=== PATIENT | female | born 1975 | race African-American/Black ===

== ENCOUNTER 2024-01-08 18:22 | Emergency (ER) | payer OTHER, SELFPAY ==
[2024-01-08 18:26] VITALS: BP 137/89
[2024-01-08 18:56] LABS: % Basophils 0.6 % (0-2); % Eosinophils 1.3 % (0-6); % Immature Granulocytes 0.2 % (0-0.5); % Lymphocytes 32.5 % (20.5-51.1); % Monocytes 7.4 % (1.7-9.3); Absolute Basophils 0.1 10^3/uL (0-0.2); Absolute Eosinophils 0.1 10^3/uL (0-0.7); Absolute Lymphocytes 3.4 10^3/uL (1.2-3.4); Absolute Monocytes 0.8 10^3/uL (0.1-0.6); Hematocrit 38.6 % (37.0-47.0); Hemoglobin 12.7 g/dL (12.0-16.0); Mean Corp Hgb Conc. 32.9 g/dL (33.0-37.0); Mean Corpuscular Hgb 25.1 pg (27.0-31.0); Mean Corpuscular Volume 76.4 fL (81.0-99.0); Mean Platelet Volume 10.2 fL (7.4-10.4); Nucleated Red Blood Cells % 0 %; Platelet Count 303 10^3/uL (130-400); Red Blood Cell Count 5.05 10^6/uL (4.20-5.40); Red Cell Dist. Width 17.1 % (11.5-14.5); White Blood Cell Count 10.3 10^3/uL (4.8-10.8)
[2024-01-08 18:57] LABS: Urine Albumin Trace (Neg - Trace); Urine Bilirubin Negative (Negative); Urine Character Clear (Clear); Urine Color Yellow; Urine Glucose Negative (Negative); Urine Ketone 1+ (Negative); Urine Leukocyte Negative (Negative); Urine Nitrite Negative (Negative); Urine Occult Blood Negative (Negative); Urine Specific Gravity 1.025 (<1.030); Urine Urobilinogen 1+ (Neg - 1+)
[2024-01-08 19:10] LABS: HCG, Serum Qualitative Screen Negative
[2024-01-08 19:15] LABS: ALT (SGPT) 21 U/L (0-35); AST (SGOT) 27 U/L (14-36); Albumin 4.3 g/dl (3.5-5.0); Alkaline Phosphatase 83 U/L (38-126); Blood Urea Nitrogen 14 mg/dl (7-17); Carbon Dioxide 24 mmol/L (22-30); Chloride 105 mmol/L (98-107); Glucose 114 mg/dl (70-99); Lipase 282 U/L (23-300); Potassium 3.7 mmol/L (3.5-5.1); Sodium 136 mmol/L (135-145); Total Bilirubin 0.7 mg/dl (0.2-1.3); Total Protein 7.1 g/dl (6.3-8.2); eGFR > 60.00
[2024-01-08 19:24] LABS: Troponin I < 0.012 ng/ml
[2024-01-08 21:22] VITALS: BP 133/91
[2024-01-08 22:00] VITALS: BP 120/78
--- NOTE | 2024-01-08 22:34 | ED.GENMED ---
History of Present Illness
General
Chief Complaint: Abdominal Symptoms
Source: patient
Exam Limitations: none
Time Seen by Provider: 01/08/24 22:03
Nursing documentation reviewed up to this point in time: agreed with
Travel History
Have you had any contact with someone who has COVID-19?: No
Do you have any symptoms of coronavirus? Fever > 100 degrees, chills, cough, shortness of breath, sore throat, loss of taste or smell, muscle aches, or headache?: No
History of Present Illness
History of Present Illness:
The patient is a 48-year-old female who comes in with complaints of abdominal pain that started about a week ago and has now moved into her chest. Patient reports she initially had lower abdominal pain that moved into her upper abdomen and into her
chest. She describes it as a heaviness. She denies shortness of breath, nausea, vomiting and diarrhea. She reports that the symptoms have lingered for several hours at a time over the last week. Patient reports that they have been fairly
constant and do not seem to be associated with eating, exertion or deep breaths. She denies history of PE and DVT. She reports that she initially thought it was just gas pains
Past History
Past History
ED Past Medical History: GERD, HTN, Other (Fibromyalgia), Other (Fibroids) and Other (Anxiety/depression. IBS)
ED Past Surgical History: Gynecological (Partial hysterectomy with ovaries still in place) and Orthopedic
Social History
Tobacco: Non-smoker
Alcohol: None
Drug: None
Personal: Single
Living: with family
Employment: Employed (Pharmaceutical)
Family History
Family History: Other (Noncontributory)
Review of Systems
Review of Systems
Allergies reviewed?: Yes
All Other Systems: ROS reviewed and negative except as documented in HPI and ROS
Constitutional: Reports no symptoms
EENT: Reports no symptoms
Respiratory: Reports no symptoms
Cardiac: Reports chest pain
ABD/GI: Reports abdominal pain
: Reports no symptoms
Musculoskeletal: Reports no symptoms
Skin: Reports no symptoms
Neurological: Reports no symptoms
Endocrine: Reports no symptoms
Hematologic/Lymphatic: Reports no symptoms
Psychiatric: Reports no symptoms
Phy Exam
Physical Exam
Physical Exam:
Physical Exam
General: no apparent distress, not acutely ill, well appearing, conversational
Neck: supple. no meningeal signs. normal psoterior pharynx
Heart: s1/s2 regular rate and rhythm, no murmur. equal radial pulses.
Lungs: no acute respiratory distress. clear bilaterally
Abdomen: normal bowel sounds. no CVAT. No pulsatile mass. Mild epigastric tenderness without rebound or guarding. Abdomen is completely soft throughout and nondistended
Neuro: alert and oriented. no focal neurological deficits
Skin: no rash
Psychiatric: well kept. interactive and cooperative
Extremities: no edema. no calf tenderness. negative homans. good distal pulses
Course
Orders/Labs/Results
Orders:
Orders
01/08/24 18:24
ECG [Electrocardiogram (*1)] Urgent
Reason for Study: Chest Pain
EKG- Treatment ONCE
01/08/24 18:30
Test Result ONCE
01/08/24 18:41
Complete Blood Count/With Diff Urgent
Comprehensive Metabolic Panel Urgent
HCG, Serum Qualitative Screen Urgent
Lipase Urgent
Troponin I Urgent
Urinalysis Reflex To Culture Urgent
Date Specimen was Collected: 01/08/24
Time Specimen was Collected: 18:30
01/08/24 22:41
Mag Hydrox/Al Hydrox/Simeth [Maalox] 30 ml Phenobarb/Hyoscy/Atropine/Scop [] 10 ml Viscous Lidocaine 2% [Xylocaine Viscous Cup] 10 ml PO NOW
01/08/24 22:48
Mag Hydrox/Al Hydrox/Simeth [Maalox] 30 ml .ROUTE .STK-MED ONE
Phenobarb/Hyoscy/Atropine/Scop [] 10 ml .ROUTE .STK-MED ONE
Viscous Lidocaine 2% [Xylocaine Viscous Cup] 15 ml .ROUTE .STK-MED ONE
Abnormal Lab Results
01/08/24
18:41
MCV 76.4 L fL
(81.0-99.0)
MCH 25.1 L pg
(27.0-31.0)
MCHC 32.9 L g/dL
(33.0-37.0)
RDW 17.1 H %
(11.5-14.5)
Absolute Monos (auto) 0.8 H 10^3/uL
(0.1-0.6)
Glucose 114 H mg/dl
(70-99)
Urine Ketones 1+ A
(Negative)
01/08/24 18:41
01/08/24 18:41
Vital Signs
Initial and Last Documented VS:
Initial Vital Signs
Temp Pulse Resp BP Pulse Ox
98.4 F 84 20 137/89 97
01/08/24 18:26 01/08/24 18:26 01/08/24 18:26 01/08/24 18:26 01/08/24 18:26
Last Documented Vital Signs
Temp Pulse Resp BP Pulse Ox
98.4 F 62 15 128/90 98
01/08/24 18:26 01/08/24 23:30 01/08/24 23:30 01/08/24 23:00 01/08/24 23:30
MDM/Problems Addressed
Differential Diagnosis Includes:
Gastritis, GERD, hiatal hernia, acute pancreatitis, acute cholecystitis, small bowel obstruction right, acute coronary syndrome
MDM/Problems Addressed:
Patient presents with acute abdominal pain that has now moved into her epigastric area and chest
Chronic conditions affecting care:
Given patient has a history of hypertension, she is at increased risk of acute coronary syndrome and aortic aneurysm
Chronic conditions affecting care: HTN
Acute Exacerbation and/or Progression of Chronic Illness:
Patient was acutely hypertensive, however, on rechecking her blood pressure, it is now substantially improved.
Acute Exacerbation and/or Progression of Chronic Illness: HTN
*Pulse Oximetry
Patient hypoxic: no
*Research Group Director Interpretation
Rate: normal
Interpretation: normal
Rhythm: sinus
*Critical Care Note
Total Time (30-74mins, 75-104mins- exclusive of procedures): Not Applicable
Data Reviewed
Review of Other/Old Records Reveals: Testing (Stress test reviewed from 2018 which showed no cardiac arrhythmias or ischemia)
Source: patient
Patient Management
Social determinants of health affecting care: Living situation
Update Note
Update Note:
11:30 PM patient reports she feels better with the GI cocktail. She still has no right upper quadrant pain to suggest acute cholecystitis. She has no mid abdominal or lower abdominal pain at this time to suggest acute diverticulitis, bowel
obstruction or acute appendicitis. Symptoms may be consistent with gastritis. Her troponin is negative despite several days of chest and abdominal pain therefore it is highly unlikely she is acute coronary syndrome. She has no pleuritic chest
pain or shortness of breath to suggest PE.
ED Attending Note
-
Portions of this chart may have been created with voice recognition software.� Occasional wrong word or��sound alike� substitutions may have occurred due to the inherent limitations of voice recognition software.
Discharge Plan
Departure
Patient Disposition: Home (Routine Discharge)
Date of Disposition: 01/08/24
Time of Disposition: 23:33
Patient with high blood pressure during this ER visit?: Yes
Condition: Good
Covid-19: Not Applicable
Discharge Problem:
Acute upper abdominal pain
Instructions: [place] Diet, Abdominal Pain, Adult ED
Prescriptions:
New
sucralfate [Carafate] 100 mg/mL suspension
10 ml PO ACHS Qty: 420 0RF
No Action
candesartan-hydrochlorothiazid 16-12.5 mg tablet
1 tab PO DAILY
cetirizine [Zyrtec] 10 mg Tablet
10 mg PO ONCE
naproxen sodium [Aleve] 220 mg Tablet
440 mg PO ONCE
cephalexin 500 mg capsule
500 mg PO Q6H 7 Days Qty: 28 0RF
Referrals:
Kenia Bean DO [Family Provider] -
Activity Restrictions/Additional Instructions:
Return for any shortness of breath. Return for fever. Return for persistent vomiting. Please call and follow-up with your county surveyor and/or primary care doctor within 1 week
Interventions
Interventions:
*Risk Screen - Suicide Last Done: 01/08/24 18:26
*General Assessment Last Done: 01/08/24 18:26
*Neglect/Abuse Screening Last Done: 01/08/24 23:41
ED- Fall Risk Assessment Last Done: 01/08/24 23:41
*ED COVID-19 Vaccine History Last Done: 01/08/24 23:41
*Nursing Disposition Last Done: 01/08/24 23:41
EE-Dhnwbo-Mjeduqxres Assessment Last Done: 01/08/24 21:28
Discharge Date and Time
Discharge Date/Time: 01/08/24 23:41
[2024-01-08] MEDS: MAALOX 50 PO (22:50)
[2024-01-08 23:00] VITALS: BP 128/90
== END 2024-01-08 23:41 | disposition home or self-care (01) ==
LOC: EMR 18:22
PROVIDERS: Emergency Medicine; EMERGENCY PHYSICIAN Emergency Medicine; FAMILY PHYSICIAN Family Medicine
DX: R10.10 Upper abdominal pain, unspecified (principal); R07.9 Chest pain, unspecified; I10 Essential (primary) hypertension
CPT/HCPCS: 99284; 80053; 81003; 83690; 84484; 84703; 85025; 93005

== ENCOUNTER → 2024-02-25 15:57 | Outpatient (REF) | payer OTHER, SELFPAY | LOC: MRI 3T 15:57 | PROVIDERS: ATTENDING PHYSICIAN Surgery; FAMILY PHYSICIAN Family Medicine | DX: R92.8 Other abnormal and inconclusive findings on diagnostic imaging of breast (principal) | CPT/HCPCS: 77049; A9585 ==

== ENCOUNTER → 2024-03-03 13:56 | Outpatient (REF) | payer OTHER, SELFPAY | LOC: WDC 13:56 | PROVIDERS: ATTENDING PHYSICIAN Surgery; FAMILY PHYSICIAN Family Medicine | DX: R92.8 Other abnormal and inconclusive findings on diagnostic imaging of breast (principal) | CPT/HCPCS: 76642 ==

== ENCOUNTER → 2024-03-27 13:02 | Outpatient (REF) | payer OTHER, SELFPAY | LOC: RCS 13:02 | PROVIDERS: ATTENDING PHYSICIAN Family Medicine | DX: R94.31 Abnormal electrocardiogram [ECG] [EKG] (principal); Z82.49 Family history of ischemic heart disease and other diseases of the circulatory system | CPT/HCPCS: 93017 ==

== ENCOUNTER 2024-04-25 20:39 | Emergency (ER) | payer OTHER, SELFPAY ==
[2024-04-25 20:46] VITALS: BP 168/96
[2024-04-25 22:03] VITALS: BMI 27.4
--- NOTE | 2024-04-25 22:16 | ED.GENMED ---
History of Present Illness
General
Chief Complaint: Breast Problem
Source: patient
Exam Limitations: none
Time Seen by Provider: 04/25/24 21:55
History of Present Illness
History of Present Illness:
This is a 49 year old female that comes in c/o feeling itchy. States that the lymph nodes are swollen in her arm pits. States that this has been painful and that this started a couple of days ago. Yesterday she spoke with the PCP and Dr. Yates
yesterday. States that she was given Tramadol for pain and that when her PCP returns from vacation they were going to talk as they felt this may be due to her RA. States that she took on Tramadol last night and on this morning at 7am. States that in
the past couple of hours she has become itchy and feels like her face is burning. States that she is afraid to take anything for pain. States that they feel it may be related to her RA or her Fibromyalgia. Denies any fever, chills, chest pain, SOB,
abd pain, nausea, vomiting, diarrhea, headache, dizziness, urinary burning.
Past History
Past History
ED Past Medical History: Asthma (allergie related. ), Fibromyalgia, GERD, HTN, Psychiatric (Anxiety/depression.), Other (Fibroids, Brain Lesion, RA, Ulcers, ) and Other ( IBS)
ED Past Surgical History: Gynecological (Partial hysterectomy with ovaries still in place) and Orthopedic (Right knee surgery, )
Social History
Tobacco: Non-smoker
Alcohol: Occasional
Drug: None
Personal:
Living: with family
Employment: Employed (Pharmaceutical)
Family History
Family History: Other (Noncontributory)
Review of Systems
Review of Systems
All Other Systems: ROS reviewed and negative except as documented in HPI and ROS
Constitutional: Reports no symptoms; Denies fever or chills
EENT: Reports no symptoms
Respiratory: Reports no symptoms; Denies cough or trouble breathing
Cardiac: Reports no symptoms; Denies chest pain
ABD/GI: Reports no symptoms; Denies abdominal pain, nausea, vomiting or diarrhea
: Reports no symptoms; Denies dysuria, frequency or urgency
Musculoskeletal: Reports no symptoms
Skin: Reports other (Swelling of arm pits)
Neurological: Reports no symptoms; Denies dizzy or headache
Psychiatric: Reports no symptoms
Phy Exam
General Physical Exam
General Presentation: no apparent distress
General age: appears stated age
General Skin: warm and dry
General Habitus: normal
General Mental: alert
General Hydration: appears well hydrated
ENT Exam
ENT Exam: TM's normal, pharynx normal and neck supple
Eye Exam
Eye Exam: EOMI
Cardiovascular Exam
Cardiovascular Exam: regular rate/rhythm, no edema, no murmur and normal peripheral pulses
Pulmonary Exam
Pulmonary Exam: lungs clear, no respiratory distress, no rales, chest non tender, no crackles, no rhonchi, no wheezing and no cough
Gastrointestinal Exam
Gastrointestinal Exam: normal bowel sounds, non tender, soft, no organomegaly, no pulsatile mass and non distended
Musculoskeletal Exam
Musculoskeletal Exam: full ROM and other (Under arm swelling and tenderness, negative for any redness)
Skin Exam
Skin Exam: normal color, warm/dry, no rash and no petechia
Psychiatric Exam
Psychiatric Exam: normal mood/affect
Course
Orders/Labs/Results
Orders:
Orders
04/25/24 22:07
Diphenhydramine [Benadryl] 25 mg IV NOW STA
Ketorolac [Toradol] 30 mg IV NOW STA
04/25/24 22:22
Test Result ONCE
04/25/24 22:30
Complete Blood Count/With Diff Urgent
Comprehensive Metabolic Panel Urgent
HCG, Serum Qualitative Screen Urgent
Abnormal Lab Results
04/25/24
22:30
MCV 75.3 L fL
(81.0-99.0)
MCH 25.2 L pg
(27.0-31.0)
RDW 14.9 H %
(11.5-14.5)
Absolute Monos (auto) 0.7 H 10^3/uL
(0.1-0.6)
Carbon Dioxide 21 L mmol/L
(22-30)
Glucose 106 H mg/dl
(70-99)
04/25/24 22:30
04/25/24 22:30
Vital Signs
Initial and Last Documented VS:
Initial Vital Signs
Temp Pulse Resp BP Pulse Ox
99.3 F 78 18 168/96 100
04/25/24 20:46 04/25/24 20:46 04/25/24 20:46 04/25/24 20:46 04/25/24 20:46
Last Documented Vital Signs
Temp Pulse Resp BP Pulse Ox
99.3 F 63 20 142/93 99
04/25/24 20:46 04/25/24 22:38 04/25/24 22:38 04/25/24 22:38 04/25/24 22:38
MDM/Problems Addressed
Differential Diagnosis Includes:
RA, lymph node swelling or arm pits
MDM/Problems Addressed:
This is a 49 year old female that comes in with c/o swelling of her under arms for the past couple of days. States that she was given Tramadol for pain and she started feeling like she was itchy. Patient has not taken any medication since 7am today.
Will check labs, medicate for pain and given Benadryl.
back into see patient. States that she is still a little itchy but her pain is better. Explained that her blood work shows some anemia, other arroyo is normal. Patient can use the Benadryl 50mg every 6 hours for the itching. Will stop the Tramadol.
Will give patient a prescription for the Toradol for pain. Follow up with the family doctor for recheck and further evaluation. Return with any concerns.
Chronic conditions affecting care:
RA, Fibromyalgia
Acute Exacerbation and/or Progression of Chronic Illness:
NA
*Pulse Oximetry
Patient hypoxic: no
*EKG
Interpreted by ED Provider?: NA
Rate: EKG- N/A
*Capital Project Engineer Interpretation
Rate: Capital Project Engineer- N/A
*Critical Care Note
Total Time (30-74mins, 75-104mins- exclusive of procedures): Not Applicable
ED Attending Note
-
Portions of this chart may have been created with voice recognition software.� Occasional wrong word or��sound alike� substitutions may have occurred due to the inherent limitations of voice recognition software.
Discharge Plan
Departure
Patient Disposition: Home (Routine Discharge)
Date of Disposition: 04/26/24
Time of Disposition: 00:13
Patient with high blood pressure during this ER visit?: Yes
Condition: Good
Covid-19: Not Applicable
Discharge Problem:
Allergic reaction caused by a drug
Instructions: Drug allergy, BLOOD PRESSURE
Prescriptions:
New
ketorolac 10 mg tablet
10 mg PO Q8H PRN (Reason: Pain) Qty: 15 0RF
Rx Instructions:
maximum total duration of 5 days from all oral, intranasal, or parenteral formulations
No Action
fluoxetine [Prozac] 10 mg Tablet
30 mg PO DAILY
amlodipine 5 mg Tablet
5 mg PO DAILY
alprazolam 0.5 mg Tablet
0.5 mg PO DAILY PRN (Reason: anxiety )
hydrochlorothiazide 12.5 mg Tablet
12.5 mg PO DAILY
Nurtec ODT 75 mg Tablet,Disintegrating
75 mg PO Q48H
Referrals:
Kenia Bean, DO [Family Provider] - Follow up in 2-3 days
Activity Restrictions/Additional Instructions:
As discussed,your blood work shows that you are a little anemic. This is most likely an allergic reaction to the Tramadol. Please do not take any more of this. You have had a prescription for Toradol sent to your pharmacy to help with pain. Follow
up with the family doctor for recheck. IF YOU HAVE ANY OTHER CONCERNS PLEASE RETURN TO THE EMERGENCY ROOM.
Interventions
Interventions:
*Risk Screen - Suicide Last Done: 04/25/24 20:46
*General Assessment Last Done: 04/25/24 20:46
*Neglect/Abuse Screening Last Done: 04/25/24 20:46
ED-Skin Assessment Last Done: 04/25/24 22:03
ED- Pulmonary Assessment Last Done: 04/25/24 22:03
ED-Musculoskeletal Assessment Last Done: 04/25/24 22:03
ED-EENT Assessment Last Done: 04/25/24 22:03
Discharge Date and Time
Print Language: HAITIAN
[2024-04-25] MEDS: BENADRYL 25 MG IV (22:19)
[2024-04-25] MEDS: TORADOL 30 MG IV (22:19)
[2024-04-25 22:38] VITALS: BP 142/93
[2024-04-25 22:45] LABS: % Basophils 0.3 % (0-2); % Eosinophils 0.9 % (0-6); % Immature Granulocytes 0.2 % (0-0.5); % Lymphocytes 33.1 % (20.5-51.1); % Monocytes 7.4 % (1.7-9.3); % Neutrophils 58.1 % (42.2-75.2); Absolute Eosinophils 0.1 10^3/uL (0-0.7); Absolute Lymphocytes 3.1 10^3/uL (1.2-3.4); Absolute Monocytes 0.7 10^3/uL (0.1-0.6); Absolute Neutrophils 5.5 10^3/uL (1.4-6.5); Hematocrit 37.4 % (37.0-47.0); Hemoglobin 12.5 g/dL (12.0-16.0); Mean Corp Hgb Conc. 33.4 g/dL (33.0-37.0); Mean Corpuscular Hgb 25.2 pg (27.0-31.0); Mean Corpuscular Volume 75.3 fL (81.0-99.0); Mean Platelet Volume 10.1 fL (7.4-10.4); Nucleated Red Blood Cells % 0 %; Platelet Count 242 10^3/uL (130-400); Red Blood Cell Count 4.97 10^6/uL (4.20-5.40); Red Cell Dist. Width 14.9 % (11.5-14.5); White Blood Cell Count 9.5 10^3/uL (4.8-10.8)
[2024-04-25 22:58] LABS: HCG, Serum Qualitative Screen Negative
[2024-04-25 23:03] LABS: ALT (SGPT) 16 U/L (0-35); AST (SGOT) 24 U/L (14-36); Albumin 4.2 g/dl (3.5-5.0); Alkaline Phosphatase 89 U/L (38-126); Blood Urea Nitrogen 13 mg/dl (7-17); Calcium 9.6 mg/dl (8.4-10.2); Carbon Dioxide 21 mmol/L (22-30); Chloride 104 mmol/L (98-107); Estimated Creatinine Clearance 87 ml/min; Glucose 106 mg/dl (70-99); Sodium 135 mmol/L (135-145); Total Bilirubin 1.2 mg/dl (0.2-1.3); Total Protein 6.9 g/dl (6.3-8.2); eGFR > 60.00
== END 2024-04-26 00:24 | disposition home or self-care (01) ==
LOC: EMR 20:39
PROVIDERS: Clinical Nurse Specialist Family Health; EMERGENCY PHYSICIAN Student in an Organized Health Care Education/Training Program; FAMILY PHYSICIAN Family Medicine
DX: R22.30 Localized swelling, mass and lump, unspecified upper limb (principal); T50.905A Adverse effect of unspecified drugs, medicaments and biological substances, initial encounter; X58.XXXA Exposure to other specified factors, initial encounter; M06.9 Rheumatoid arthritis, unspecified; M79.7 Fibromyalgia; K58.9 Irritable bowel syndrome, unspecified; K21.9 Gastro-esophageal reflux disease without esophagitis; J45.909 Unspecified asthma, uncomplicated; I10 Essential (primary) hypertension; F41.8 Other specified anxiety disorders
CPT/HCPCS: 99283; 96374; 96375; 80053; 84703; 85025

== ENCOUNTER → 2024-05-07 09:25 | Outpatient (REF) | payer OTHER, SELFPAY | LOC: WDC 09:25 | PROVIDERS: ATTENDING PHYSICIAN Family Medicine | DX: N64.4 Mastodynia (principal) | CPT/HCPCS: 76642; 77062; 77066 ==

== ENCOUNTER → 2024-06-19 18:00 | Outpatient (REF) | payer OTHER, SELFPAY | LOC: PAVMRI 18:00 | PROVIDERS: ATTENDING PHYSICIAN Family Medicine | DX: M79.622 Pain in left upper arm (principal); M79.621 Pain in right upper arm; N64.4 Mastodynia | CPT/HCPCS: 73218 ==

== ENCOUNTER → 2024-07-02 11:48 | Outpatient (REF) | payer OTHER, SELFPAY | LOC: MRI 3T 11:48 | PROVIDERS: ATTENDING PHYSICIAN Family Medicine | DX: M79.622 Pain in left upper arm (principal); M79.621 Pain in right upper arm; N64.4 Mastodynia | CPT/HCPCS: 73218 ==

== ENCOUNTER → 2024-07-03 13:27 | Outpatient (REF) | payer OTHER, SELFPAY | LOC: MRI 3T 13:27 | PROVIDERS: ATTENDING PHYSICIAN Family Medicine | DX: M79.622 Pain in left upper arm (principal); M79.621 Pain in right upper arm; N64.4 Mastodynia | CPT/HCPCS: 77049; A9585 ==

== ENCOUNTER → 2024-08-13 11:36 | Outpatient (REF) | payer OTHER, SELFPAY | LOC: RAD 11:36 | PROVIDERS: ATTENDING PHYSICIAN Family Medicine | DX: M54.89 Other dorsalgia (principal); M62.830 Muscle spasm of back | CPT/HCPCS: 72052; 72072; 72110 ==

== ENCOUNTER 2024-09-22 13:08 | Outpatient (RCR) | payer OTHER, SELFPAY | END 2024-09-22 23:59 | disposition home or self-care (01) | LOC: RPT 13:08 | PROVIDERS: ATTENDING PHYSICIAN Internal Medicine; FAMILY PHYSICIAN Family Medicine | DX: M15.0 Primary generalized (osteo)arthritis (principal); Z73.6 Limitation of activities due to disability; M79.7 Fibromyalgia; R20.2 Paresthesia of skin; R53.1 Weakness | CPT/HCPCS: 97110; 97112; 97163 ==

== ENCOUNTER 2024-10-26 15:06 | Outpatient (RCR) | payer OTHER, BC, SELFPAY | END 2024-10-26 23:59 | disposition home or self-care (01) | LOC: RPT 15:06 | PROVIDERS: ATTENDING PHYSICIAN Internal Medicine; FAMILY PHYSICIAN Family Medicine | DX: M15.0 Primary generalized (osteo)arthritis (principal); Z73.6 Limitation of activities due to disability; M79.7 Fibromyalgia; R20.2 Paresthesia of skin; R53.1 Weakness | CPT/HCPCS: 97110; 97112; 97530 ==

== ENCOUNTER → 2024-11-02 07:37 | Outpatient (REF) | payer BC, SELFPAY | LOC: HWRAD 07:37 | PROVIDERS: ATTENDING PHYSICIAN Internal Medicine Transplant Hepatology; FAMILY PHYSICIAN Family Medicine | DX: K76.89 Other specified diseases of liver (principal) | CPT/HCPCS: 76700 ==

== ENCOUNTER 2024-11-05 17:17 | Outpatient (RCR) | payer BC, SELFPAY | END 2024-11-05 23:59 | disposition home or self-care (01) | LOC: RPT 17:17 | PROVIDERS: ATTENDING PHYSICIAN Internal Medicine; FAMILY PHYSICIAN Family Medicine | DX: M15.0 Primary generalized (osteo)arthritis (principal); Z73.6 Limitation of activities due to disability; M79.7 Fibromyalgia; R20.2 Paresthesia of skin; R53.1 Weakness | CPT/HCPCS: 97110; 97530 ==

== ENCOUNTER → 2024-11-06 18:01 | Outpatient (REF) | payer BC, SELFPAY | LOC: MRI 18:01 | PROVIDERS: ATTENDING PHYSICIAN Family Medicine | DX: M54.89 Other dorsalgia (principal); M62.830 Muscle spasm of back | CPT/HCPCS: 72141; 72146; 72148 ==

== ENCOUNTER → 2025-01-08 08:20 | Outpatient (REF) | payer BC, SELFPAY | LOC: WDC 08:20 | PROVIDERS: ATTENDING PHYSICIAN Family Medicine | DX: N63.10 Unspecified lump in the right breast, unspecified quadrant (principal); N63.20 Unspecified lump in the left breast, unspecified quadrant | CPT/HCPCS: 76642; 77062; 77066 ==

== ENCOUNTER 2025-06-13 17:38 | Emergency (ER) | payer BC, SELFPAY ==
[2025-06-13 17:47] VITALS: BP 152/101
[2025-06-13 18:14] LABS: Hematocrit 37.9 % (37.0-47.0); Hemoglobin 12.3 g/dL (12.0-16.0); Mean Corp Hgb Conc. 32.5 g/dL (33.0-37.0); Mean Corpuscular Volume 76.4 fL (81.0-99.0); Nucleated Red Blood Cells % 0 %; Platelet Count 271 10^3/uL (130-400); Red Cell Dist. Width 14.5 % (11.5-14.5)
[2025-06-13 18:24] LABS: ALT (SGPT) 15 U/L (0-35); AST (SGOT) 21 U/L (14-36); Albumin 4.3 g/dl (3.5-5.0); Alkaline Phosphatase 90 U/L (38-126); Blood Urea Nitrogen 12 mg/dl (7-17); Calcium 9.4 mg/dl (8.4-10.2); Carbon Dioxide 24 mmol/L (22-30); Chloride 108 mmol/L (98-107); Glucose 121 mg/dl (70-99); Potassium 3.6 mmol/L (3.5-5.1); Sodium 138 mmol/L (135-145); Total Protein 7.0 g/dl (6.3-8.2); eGFR > 60.00
--- NOTE | 2025-06-13 18:36 | EDRN ---
Pt in WR complaining of L hand and wrist pain. Ice to area at this time.
--- NOTE | 2025-06-13 20:57 | ED.GENMED ---
History of Present Illness
General
Chief Complaint: Insect Sting
Source: patient
Time Seen by Provider: 06/13/25 20:48
History of Present Illness
History of Present Illness:
50-year-old female presents to the emergency room complaining of redness, swelling left arm. Patient was stung by a yellowjacket yesterday around 2 PM. Sting was on the dorsal surface of the left hand. She took an EpiPen. She has been having
swelling that has been increasing since that time. No fever or chills. Patient states she had a episode 2 years ago where she had a bite in a similar area and developed 'cellulitis' requiring her to be admitted to the hospital for IV antibiotics.
Past History
Past History
ED Past Medical History: Asthma (allergie related. ), Fibromyalgia, GERD, HTN, Psychiatric (Anxiety/depression.), Other (Fibroids, Brain Lesion, RA, Ulcers, ) and Other ( IBS)
ED Past Surgical History: Gynecological (Partial hysterectomy with ovaries still in place) and Orthopedic (Right knee surgery, )
Social History
Tobacco: Non-smoker
Alcohol: Occasional
Drug: None
Personal:
Living: with family
Employment: Employed (Pharmaceutical)
Family History
Family History: Other (Noncontributory)
Phy Exam
Physical Exam
Physical Exam:
General: Awake, Alert, Oriented X3. No acute distress.
Vitals: unremarkable
Head: Atraumatic
Eyes: Pupils equal, EOMI
Throat: Airway intact, no exudates
Neck: Trachea midline
Neuro: Nonfocal
Skin: Warm, dry, no rash
Extremities: pulses equal b/l, moderate swelling left hand and distal forearm with some mild erythema. Very boggy. Not particularly warm to touch.
Course
Orders/Labs/Results
Orders:
Orders
06/13/25 18:00
CMP [Comprehensive Metabolic Panel] Urgent
Complete Blood Count/With Diff Urgent
Abnormal Lab Results
06/13/25
18:00
WBC 11.5 H 10^3/uL
(4.8-10.8)
MCV 76.4 L fL
(81.0-99.0)
MCH 24.8 L pg
(27.0-31.0)
MCHC 32.5 L g/dL
(33.0-37.0)
Absolute Neuts (auto) 7.7 H 10^3/uL
(1.4-6.5)
Absolute Monos (auto) 0.7 H 10^3/uL
(0.1-0.6)
Chloride 108 H mmol/L
(98-107)
Glucose 121 H mg/dl
(70-99)
06/13/25 18:00
06/13/25 18:00
Vital Signs
Initial and Last Documented VS:
Initial Vital Signs
Temp Pulse Resp BP Pulse Ox
98.7 F 106 18 152/101 94
06/13/25 17:47 06/13/25 17:47 06/13/25 17:47 06/13/25 17:47 06/13/25 17:47
Last Documented Vital Signs
Temp Pulse Resp BP Pulse Ox
98.7 F 106 18 152/101 94
06/13/25 17:47 06/13/25 17:47 06/13/25 17:47 06/13/25 17:47 06/13/25 17:47
MDM/Problems Addressed
Differential Diagnosis Includes:
Hymenoptera envenomation, cellulitis
MDM/Problems Addressed:
Patient presents with redness and edema left arm. I suspect this is all related to the envenomation rather than infection given that the patient is just 24 hours from the sting. However patient had a bad experience a couple years ago with what was
thought to be a significant infection. Will cover with Bactrim. No indication for hospitalization at this time.
*Pulse Oximetry
SaO2: 94
Oxygen Mode of Delivery: Room air
Patient hypoxic: no
*Critical Care Note
Total Time (30-74mins, 75-104mins- exclusive of procedures): Not Applicable
ED Attending Note
-
Portions of this chart may have been created with voice recognition software.� Occasional wrong word or��sound alike� substitutions may have occurred due to the inherent limitations of voice recognition software.
Discharge Plan
Departure
Patient Disposition: Home (Routine Discharge)
Date of Disposition: 06/13/25
Time of Disposition: 21:00
Patient with high blood pressure during this ER visit?: Yes
Condition: Good
Discharge Problem:
Local reaction to hymenoptera sting
Instructions: Insect Bites and Stings (DC)
Prescriptions:
New
sulfamethoxazole-trimethoprim [Bactrim DS] 800-160 mg tablet
1 tab PO BID Qty: 14 0RF
No Action
fluoxetine [Prozac] 10 mg Tablet
30 mg PO DAILY
amlodipine 5 mg Tablet
5 mg PO DAILY
alprazolam 0.5 mg Tablet
0.5 mg PO DAILY PRN (Reason: anxiety )
hydrochlorothiazide 12.5 mg Tablet
12.5 mg PO DAILY
Nurtec ODT 75 mg Tablet,Disintegrating
75 mg PO Q48H
ketorolac 10 mg tablet
10 mg PO Q8H PRN (Reason: Pain) Qty: 15 0RF
Rx Instructions:
maximum total duration of 5 days from all oral, intranasal, or parenteral formulations
Interventions
Interventions:
*Risk Screen - Suicide Last Done: 06/13/25 17:47
*General Assessment Last Done: 06/13/25 17:47
*Neglect/Abuse Screening Last Done: 06/13/25 17:47
*ED COVID-19 Vaccine History Last Done: 06/13/25 17:47
Discharge Date and Time
Print Language: LEBANESE
[2025-06-13] MEDS: BACTRIM DS 800 MG/160 MG 1 TABLET PO (21:05)
== END 2025-06-13 21:13 | disposition home or self-care (01) ==
LOC: EMR 17:38
PROVIDERS: EMERGENCY PHYSICIAN Emergency Medicine; FAMILY PHYSICIAN Family Medicine
DX: T63.461A Toxic effect of venom of wasps, accidental (unintentional), initial encounter (principal); R22.32 Localized swelling, mass and lump, left upper limb; X58.XXXA Exposure to other specified factors, initial encounter; J45.909 Unspecified asthma, uncomplicated; I10 Essential (primary) hypertension; M79.7 Fibromyalgia
CPT/HCPCS: 99283; 80053; 85025

== ENCOUNTER → 2025-09-09 14:08 | Outpatient (REF) | payer BC, SELFPAY | LOC: MRI 3T 14:08 | PROVIDERS: ATTENDING PHYSICIAN Family Medicine | DX: N60.02 Solitary cyst of left breast (principal); R92.8 Other abnormal and inconclusive findings on diagnostic imaging of breast | CPT/HCPCS: 77049; A9585 ==

== ENCOUNTER → 2025-10-12 14:09 | Outpatient (REF) | payer BC, SELFPAY | LOC: WDC 14:09 | PROVIDERS: ATTENDING PHYSICIAN Family Medicine | DX: R92.8 Other abnormal and inconclusive findings on diagnostic imaging of breast (principal) | CPT/HCPCS: 76642 ==